=== PATIENT | female | born 1945 | race Caucasian/White ===

== ENCOUNTER → 2016-06-06 | Outpatient (CLI) | payer OTHER ==
[2016-01-16 17:04] VITALS: BP 169/83
[~2016-06-06] MED LIST: AZIT250T PO; HYDR115S2 PO; PRED20TA PO; PROAIR HFA8.5 GM INH
--- NOTE | 2016-06-07 11:02 | KCIC ---
Bilateral digital screening mammograms with CAD: HISTORY Routine screening. COMPARISON Comparison is made to previous examinations dated 05/20/2014 and 03/22/2013. FINDINGS Breast density category A. The skin and nipples show no abnormalities. No abnormal lymph nodes are seen in the axilla. The breast parenchyma is predominately fatty. There are no dominant masses, suspicious calcifications or architectural distortions. Benign appearing calcifications consistent with fat necrosis are present in the left breast anteriorly. Biopsy clip remains present on the right. IMPRESSION No evidence of malignancy. Recommend routine annual mammographic screening. This study was interpreted with the benefit of Computerized Aided Detection (CAD). Mammography is not 100% sensitive in detecting breast cancer. Therefore, a self breast exam and a clinical breast exam are very important. A negative mammogram does not negate a clinically suspicious finding and should not result in a delay in biopsying a clinically suspicious abnormality. BI-RADS category 2. Benign. This patient's information has been entered into a reminder system for the patient to be notified with the results of this examination and a target date for her next mammograms. Electronically signed by: Sanaz Sharif MD (Jun 07, 2016 11:00:27)
== END | disposition home or self-care (01) ==
LOC: KCIC MAMMO 09:27
PROVIDERS: ATTEND Family Medicine
DX: Z12.31 Encounter for screening mammogram for malignant neoplasm of breast (principal)
CPT/HCPCS: G0202; 77067

== ENCOUNTER 2017-06-22 14:20 | Emergency (ER) | payer OTHER | END 2017-06-22 16:16 | disposition home or self-care (01) | LOC: ER 14:20 | DX: S63.502A Unspecified sprain of left wrist, initial encounter (principal); S63.92XA Sprain of unspecified part of left wrist and hand, initial encounter; M19.042 Primary osteoarthritis, left hand; M19.032 Primary osteoarthritis, left wrist; F32.9 Major depressive disorder, single episode, unspecified; K21.9 Gastro-esophageal reflux disease without esophagitis; I10 Essential (primary) hypertension; E03.9 Hypothyroidism, unspecified; G89.29 Other chronic pain; Z88.1 Allergy status to other antibiotic agents; Z88.8 Allergy status to other drugs, medicaments and biological substances; W18.39XA Other fall on same level, initial encounter; Y93.89 Activity, other specified; Y92.89 Other specified places as the place of occurrence of the external cause; Y99.8 Other external cause status | CPT/HCPCS: 73110; 73130; 99284 ==

== ENCOUNTER → 2017-07-18 | Outpatient (CLI) | payer OTHER | END | disposition home or self-care (01) | LOC: KCIC 13:51 | DX: M19.031 Primary osteoarthritis, right wrist (principal) | CPT/HCPCS: 73110 ==

== ENCOUNTER → 2017-11-21 | Outpatient (CLI) | payer OTHER ==
[2017-06-22 14:30] VITALS: BP 131/76
[~2017-11-21] MED LIST changes: +DICL100G18 TP; +TRAM50TA PO
--- NOTE | 2017-11-21 12:31 | KCIC ---
EXAM: Right foot, 3 views. HISTORY: Metatarsalgia. COMPARISON: None. FINDINGS: 3 views of the right foot are obtained. There is no fracture, dislocation or subluxation. There is a small spur at the base of the first proximal phalanx. There is a small plantar spur. IMPRESSION: No acute osseous finding. Electronically signed by: Jerica Oh MD (11/21/2017 12:28 PM) [id number]
== END | disposition home or self-care (01) ==
LOC: KCIC 11:42
PROVIDERS: ATTEND Family Medicine
DX: M77.41 Metatarsalgia, right foot (principal); M77.51 Other enthesopathy of right foot and ankle; E03.9 Hypothyroidism, unspecified; K21.9 Gastro-esophageal reflux disease without esophagitis; Z88.1 Allergy status to other antibiotic agents; Z88.8 Allergy status to other drugs, medicaments and biological substances
CPT/HCPCS: 73630

== ENCOUNTER → 2018-04-02 | Outpatient (CLI) | payer OTHER ==
[2017-06-22 14:30] VITALS: BP 131/76
[~2018-04-02] MED LIST changes: +ALBU2.5V8 INH; -PROAIR HFA8.5 GM INH
--- NOTE | 2018-04-02 12:21 | KCIC ---
History: Routine screening. Technique: Bilateral digital mammographic routine views were obtained with CAD - computer aided detection. Comparison: June 06, 2016. Findings: Breast Tissue Density B :The breast tissue is composed of mixed fatty and fibroglandular tissue. There are no suspicious masses, microcalcifications or areas of architectural distortion. Impression: Negative mammogram. BI-RADS Category 1: Negative. Normal interval followup. A mammogram does not have 100% sensitivity and therefore a negative imaging study should not delay further work up of a suspicious abnormality. The patient will receive a letter with the results in the mail. Patient information is entered into the reminder system with a target due date for the next screening mammogram. The patient will receive a reminder. "Our facility is accredited by the [employer] Mammography Program." Electronically signed by: Ric Mccauley III, MD (04/02/2018 12:17 PM) [id number]
== END | disposition home or self-care (01) ==
LOC: KCIC MAMMO 10:27
PROVIDERS: ATTEND Family Medicine
DX: Z12.31 Encounter for screening mammogram for malignant neoplasm of breast (principal)
CPT/HCPCS: 77067

== ENCOUNTER → 2020-01-24 | Outpatient (CLI) | payer MEDICARE ==
[2017-06-22 14:30] VITALS: BP 131/76
[~2020-01-24] MED LIST changes: -DICL100G18 TP; +DICL100G54 TP
--- NOTE | 2020-01-24 15:09 | RAD ---
Carotid doppler ultrasound History: Partial retinal artery occlusion, hypertension, dizziness, lightheaded Multiple grayscale, color, and duplex spectral analysis waveform sonographic images were acquired of the carotid, subclavian, and vertebral arteries. Comparison: None Findings: RIGHT: PSV cm/sec EDV cm/sec Common carotid artery 56 11 Maximal internal carotid artery 367 94 External carotid artery 59 Vertebral artery 32 ICA/CCA ratio 6.6 LEFT: PSV cm/sec EDV cm/sec Common carotid artery 66 17 Maximum internal carotid artery 120 36 External carotid artery 56 Vertebral artery 46 ICA/CCA ratio 1.8 Velocities used to determine stenosis are known to correlate with NASCET angiographic criteria. There is antegrade flow in the bilateral vertebral arteries. There is plaque of the bilateral carotid bulbs extending into the internal carotid arteries bilaterally, also some scattered plaque of the common carotid arteries. There is velocity elevation of the internal carotid arteries bilaterally greater on the right. There is more focal stenosis of the mid right internal carotid artery. Impression: 1. There is plaque bilaterally. There is velocity elevation of the mid right internal carotid artery suggestive of significant stenosis, greater than 70% luminal diameter reduction. Electronically signed by: Keith Colorado MD (01/24/2020 3:06 PM) [facility]
== END ==
LOC: US 12:57
PROVIDERS: ATTEND Family Medicine
DX: I65.23 Occlusion and stenosis of bilateral carotid arteries (principal); H34.212 Partial retinal artery occlusion, left eye
CPT/HCPCS: 93880

== ENCOUNTER 2021-08-07 21:35 | Emergency (ER) | payer MEDICARE ==
[~2021-08-07] VITALS: Ht 149.9 cm; Wt 86.4 kg
--- NOTE | 2021-08-07 22:16 | PHYS DOC ---
Past Medical History Past Medical History: Depression, GERD, Hypertension, Hypothyroid, Other Additional Past Medical Histor: CHRONIC KNEE PAIN (VELIA GUZMÁN Heather IT OPERATIONS ANALYST) Past Surgical History: , Other Additional Past Surgical Histo: R SHOULDER,HIATAL HERNIA (VELIA GUZMÁN IT OPERATIONS ANALYST) Smoking Status: Never Smoker Alcohol Use: Rarely Drug Use: None (VELIA GUZMÁN Heather DELEON) General Adult EDM: Chief Complaint: ANIMAL BITE HPI: HPI: Patient is a 76 year old female who presents to the ED today with dog bites to the right hand, and left triceps, patient was trying to separate her 3 dogs that were fighting and got bit and scratched by the dogs. Patient is right-handed. (VELIA GUZMÁN IT OPERATIONS ANALYST) Review of Systems: Review of Systems: Constitutional: Denies fever or chills. [] Musculoskeletal: Denies back pain or joint pain. [] Integument: Reports dog bites to the right hand and left biceps Neurologic: Denies headache, focal weakness or sensory changes. Psychiatric: Denies depression or anxiety. [] (VELIA GUZMÁN Heather IT OPERATIONS ANALYST) Heart Score: C/O Chest Pain: N/A Risk Factors: Risk Factors: DM, Current or recent (<one month) smoker, HTN, HLP, family history of CAD, obesity. Risk Scores: Score 0 - 3: 2.5% MACE over next 6 weeks - Discharge Home Score 4 - 6: 20.3% MACE over next 6 weeks - Admit for Clinical Observation Score 7 - 10: 72.7% MACE over next 6 weeks - Early Invasive Strategies (VELIA GUZMÁN Heather IT OPERATIONS ANALYST) Current Medications: Current Medications Medications (Trade) Dose Ordered Sig/Rene Start Time Stop Time Status Last Admin Dose Admin Tetracaine/ Epinephrine/ Lidocaine (Let (Rarv-Wsicfue-Hutac) Gel) 9 ml 1X ONCE 08/07/21 22:30 08/07/21 22:31 (ARIELLEVELIA Heather IT OPERATIONS ANALYST) Allergies: Allergies: Allergies Coded Allergies Type Severity Reaction Last Updated Verified amoxicillin Allergy Intermediate HIVES 01/16/16 Yes clavulanic acid Allergy Intermediate HIVES 01/16/16 Yes (WILDAPERLATrenaVELIA Heather IT OPERATIONS ANALYST) Physical Exam: PE: Constitutional: Well developed, well nourished, no acute distress, non-toxic appearance. [] Skin: Right dorsal hand with a V-shaped laceration approximately 3 cm long, there is no obvious tendon involvement. There is also another laceration on the ulnar aspect of the left hand approximately 3 cm with no tendon involvement. Patient able to flex and extend the right hand with no difficulties. Adequate radial, median, ulnar sensation to the right fingers. Cap refill less than 2 seconds to right fingers. +2 right radial pulse. Left triceps with 2 scratches and 2 puncture wounds consistent of a dog bite. Neurovascular exam is intact to the left upper extremity. +2 left radial pulse. Cap refill less than 2 seconds to left fingers Back: No tenderness, no CVA tenderness. [] Extremities: No tenderness, no cyanosis, no clubbing, ROM intact, no edema. [] Neurologic: Alert and oriented X 3, normal motor function, normal sensory function, no focal deficits noted. [] Psychologic: Affect normal, judgement normal, mood normal. [] (VELIA GUZMÁN APRN) EKG: EKG: [] (VELIA GUZMÁN APRN) Radiology/Procedures: Radiology/Procedures: [] (VELIA GUZMÁN APRN) Course & Med Decision Making: Course & Med Decision Making Pertinent Labs and Imaging studies reviewed. (See chart for details) This is a 76-year-old female patient presenting to the ED today to be evaluated for dog bites that occurred prior to coming to the ED. Patient got bit by her own dogs, her dogs are up-to-date with their shots. Significant dog bite is on the right hand. Right hand x-rays interpreted by radiologist are negative for any acute findings. Tetanus was updated. Dog bite was cleaned thoroughly and Steri-Stripped. Discharged on clindamycin and Bactrim, first dose given in the ED. Follow-up with PCP next week. Wound care instructions and return precautions provided (VELIA GUZMÁN APRN) Dragon Disclaimer: Dragon Disclaimer: This electronic medical record was generated, in whole or in part, using a voice recognition dictation system. (VELIA GUZMÁN APRN) Departure Departure Impression: Primary Impression: Animal bite of right upper arm Additional Impression: Animal bite of left upper arm Disposition: 01 HOME / SELF CARE / HOMELESS Condition: STABLE Referrals: AJAY DUMAS MD (PCP) Follow-up in 1 to 2 weeks Patient Instructions: Animal Bite, [id number] Additional Instructions: You have a dog bite to the right hand and left upper extremity. Please keep the areas clean and dry. Cover them if they are bleeding or draining. In 24 hours if there is no bleeding or draining leave the areas open to air. Take the prescribed antibiotics until completed. Apply Neosporin to the areas twice a day. You can shower and wash the areas with regular soap and water. Monitor the areas for any signs of infection including but not limited to increased redness, warmth, yellow drainage from the areas and return to the Ed or see your doctor if they occur. Scripts Sulfamethoxazole/Trimethoprim (BACTRIM DS TABLET) 1 Each Tablet 1 TAB PO BID for 10 Days, #20 TAB 0 Refills Prov: VELIA GUZMÁN APRN 08/07/21 Clindamycin Hcl (CLINDAMYCIN HCL) 150 Mg Capsule 3 CAP PO TID, #90 CAP Prov: VELIA GUZMÁN APRN 08/07/21 Attending Signature Attending Signature I have reviewed the PA/PROPERTY ASSISTANT's note and plan of care. I was available for consultation as needed during the patient's visit in the emergency department. I agree with the clinical impression, plan, and disposition.nical information above including history, exam, and recommendations. (ANDRÉS ANDREWS DO) VELIA GUZMÁN APRN August 07, 2021 22:16 ANDRÉS ANDREWS DO August 08, 2021 00:14
[2021-08-07] MEDS ORDERED: LIDOCAINE/EPI/TETRACAINE TOPICAL GEL 3 ML. TP ONE (22:30)
[2021-08-07] MEDS ORDERED: CLINDAMYCIN HCL 150 MG CAPSULE. PO ONE (23:00)
[2021-08-07] MEDS ORDERED: SMZ/TMP 800/160MG TABLET. PO ONE (23:00)
[2021-08-07 23:02] VITALS: BP 180/71
[2021-08-07] MEDS ORDERED: SULF1TAB24 PO (23:14)
[2021-08-07] MEDS ORDERED: CLIN150C16 PO (23:14)
--- NOTE | 2021-08-07 23:27 | RAD ---
Exam: Right hand 3 views INDICATION: Dog bite, pain TECHNIQUE: Frontal, lateral oblique views of the right hand Comparisons: None FINDINGS: Bone mineralization is normal. No acute fractures. Soft tissue air noted at the second webspace. Join t spaces are well-maintained. IMPRESSION: Small amount of air noted between the second and third metacarpals. No radiopaque foreign body or und erlying osseous abnormality identified. Electronically signed by: Paty Mak MD (08/07/2021 11:24 PM) [facility]
[2021-08-07] MEDS ORDERED: LIDOCAINE WITH 8.4% SOD BICARB 3 ML DISP.SYRIN. INJ ONE (23:30)
[2021-08-07] MEDS ORDERED: DIPHTH,PERTUSS(ACELL),TET TOX 0.5 ML DISP.SYRIN. VAX IM ONE (23:30)
== END 2021-08-07 23:20 | disposition home or self-care (01) ==
LOC: ER 21:35
DX: S61.412A Laceration without foreign body of left hand, initial encounter (principal); S61.411A Laceration without foreign body of right hand, initial encounter; S41.132A Puncture wound without foreign body of left upper arm, initial encounter; S41.151A Open bite of right upper arm, initial encounter; K21.9 Gastro-esophageal reflux disease without esophagitis; I10 Essential (primary) hypertension; E03.9 Hypothyroidism, unspecified; G89.29 Other chronic pain; Z88.1 Allergy status to other antibiotic agents; W54.0XXA Bitten by dog, initial encounter; Y93.89 Activity, other specified; Y92.89 Other specified places as the place of occurrence of the external cause; Y99.8 Other external cause status
CPT/HCPCS: 73130; 90471; 90715; 96372; 99284; J3490